=== PATIENT | male | born 1990 | race Caucasian/White ===

== ENCOUNTER 2023-05-03 11:45 | Emergency (ER) | payer BC ==
[~2023-05-03] VITALS: Ht 170.2 cm; Wt 90.7 kg
[2023-05-03 12:19] VITALS: BP 119/77; PULSE 68; RESP 20; TEMP 97.9; O2SAT 98
--- NOTE | 2023-05-03 12:25 | NUR ---
JASMIN MARINO AT BEDSIDE FOR EVALUATION
--- NOTE | 2023-05-03 12:48 | NUR ---
pt swabbed for flu and strepx2. walked and handed to lab
[2023-05-03 12:59] VITALS: O2SAT 98
[2023-05-03] MEDS ORDERED: BENZ-300 PO (13:03)
[2023-05-03] MEDS ORDERED: PROM118S5 PO (13:03)
--- NOTE | 2023-05-03 13:19 | NUR ---
Patient discharged with v/s stable. Written and verbal after care instructions given and explained. Patient verbalized understanding. Ambulatory with steady gait. All questions addressed prior to discharge. Advised to follow up with PMD.
[2023-05-06] MEDS ORDERED: AMOX1TAB8 PO (16:13)
== END 2023-05-03 13:19 | disposition home or self-care (01) ==
LOC: MED 11:45
DX: J06.9 Acute upper respiratory infection, unspecified (principal); Z79.899 Other long term (current) drug therapy
CPT/HCPCS: 87081; 99283